=== PATIENT | female | born 1955 | race Asian ===

== ENCOUNTER → 2017-02-23 | Day surgery (SDC) | payer OTHER ==
--- NOTE | 2017-02-24 11:46 | OP ---
DATE OF OPERATION: 02/23/2017 PREOPERATIVE DIAGNOSIS: Left breast retroareolar mass. POSTOPERATIVE DIAGNOSIS: Left breast retroareolar mass. PROCEDURE: Left breast ultrasound-guided core biopsy with clip placement. ANESTHESIA: Local. ATTENDING SURGEON: Marcelina Carrion MD ESTIMATED BLOOD LOSS: Minimal. COMPLICATIONS: None. DESCRIPTION OF PROCEDURE: Patient was made aware of the risks and benefits of the procedure and consented. She was placed in supine position. Under sterile conditions with 1% lidocaine for local anesthesia, a small bautista was made in the skin. Using a 10-gauge suction biopsy device under ultrasound guidance through an inferolateral approach, multiple cores were obtained and submitted to Pathology. Likewise, under ultrasound guidance, a U-shaped clip was placed into the biopsy region. Well tolerated by the patient. Steri-Strip and a sterile bandage were applied. We will contact her with the results. MARCELINA CARRION M.D. [id number]
--- NOTE | 2017-02-25 13:36 | PATH ---
Surgical Pathology Report Patient Name: [facility]. Rec. #: [id number] /Age/Gender: 1955 (Age: 62) / F Account: [id number] Location: Taken: 02/23/2017 Received: 02/23/2017 Reported: 02/25/2017 Physicians: Nirmala Irene M.D. Specimen(s) Received BREAST CORE BIOPSY LEFT RETRO Clinical History Non-palpable lesion Ultrasound findings: Suspicious Final Diagnosis LEFT BREAST, RETROAREOLAR, ULTRASOUND GUIDED NEEDLE CORE BIOPSY: INTRADUCTAL PAPILLOMA WITHOUT ATYPIA, AND FIBROCYSTIC CHANGES INCLUDED STROMAL FIBROSIS, DUCTAL DILATATION, AND CYSTIC APOCRINE METAPLASIA. Electronically Signed Macho Dawkins M.D. Gross Description Received in formalin labeled "left breast retro," is a 2.2 x 2.0 x 0.3 cm aggregate of multiple ansari-yellow, irregular to cylindrical portions of fibroadipose tissue admixed with blood clot. The formalin is filtered and the specimen is entirely submitted in one cassette. Total formalin fixation time: Approximately 8 hours 02/23/2017
== END | disposition home or self-care (01) ==
LOC: FRADUS-SUR 14:13
PROVIDERS: ATTEND Surgery Surgical Oncology
PROC: 0HBU3ZX Excision of Left Breast, Percutaneous Approach, Diagnostic (ICD-10-PCS; principal; 2017-02-23)
DX: D24.2 Benign neoplasm of left breast (principal); N60.32 Fibrosclerosis of left breast; N64.89 Other specified disorders of breast; N60.12 Diffuse cystic mastopathy of left breast; N63.42 Unspecified lump in left breast, subareolar
CPT/HCPCS: 19083; 87899; 88305-TC; A4648; G0206-TC

== ENCOUNTER 2017-10-06 20:04 | Observation (INO) | payer OTHER ==
[2017-10-06 20:10] VITALS: BMI 26.8
--- NOTE | 2017-10-06 20:14 | PDOC ---
Rapid Medical Evaluation Medical Evaluation: 10/06/17 20:05 I have performed a brief in-person evaluation of this patient. The patient presents with a chief complaint of: palpitations with midsternal "discomfort" Pertinent physical exam findings: HR irregular, Lungs CTAB I have ordered the following: labs, urine, CXR, nurse monitoring, EKG The patient will proceed to the ED for further evaluation. Discharge Disposition - Diagnosis Palpitations - Referrals - Patient Instructions - Post Discharge Activity
--- NOTE | 2017-10-06 20:29 | PDOC ---
Attending Attestation - HPI HPI: 10/06/17 22:17 The patient is a 62-year-old female, with a past medical history of HTN and hyperthyroidism, who presents to the ED with palpitations that began 30 minutes prior to arrival. The patient states that she was took her metoprolol while she was eating dinner and subsequently developed palpitations. The patient denies any chest pain or shortness of breath. She denies any fever, chills, nausea, vomiting, diarrhea, or abdominal pain. She denies any dizziness, lightheadedness, or weakness. Allergies: Penicillins, Sulfa (Sulfanamide Antibiotics). PCP: Dr. Pyle - Physicial Exam PE: 10/06/17 22:18 GENERAL: Awake, alert, and fully oriented, in no acute distress HEAD: No signs of trauma EYES: PERRLA, EOMI, sclera anicteric, conjunctiva clear ENT: Auricles normal inspection, hearing grossly normal, nares patent, oropharynx clear without exudates. Moist mucosa NECK: Normal ROM, supple, no lymphadenopathy, JVD, or masses LUNGS: Breath sounds equal, clear to auscultation bilaterally. No wheezes, and no crackles HEART: (+)Tachycardic, irregularly irregular. Normal S1 and S2, no murmurs, rubs or gallops ABDOMEN: Soft, nontender, normoactive bowel sounds. No guarding, no rebound. No masses EXTREMITIES: Normal range of motion, no edema. No clubbing or cyanosis. No cords, erythema, or tenderness NEUROLOGICAL: Cranial nerves II through XII grossly intact. SKIN: Warm, Dry, normal turgor, no rashes or lesions noted - Medical Decision Making 10/06/17 22:00 Dr. Green was paged and notified via phone service. <Amanda Bower - Last Filed: 10/06/17 22:17> - Resident Resident Name: Malika Paredes - ED Attending Attestation I have performed the following: I have examined & evaluated the patient, The case was reviewed & discussed with the resident, I agree w/resident's findings & plan, Exceptions are as noted - Critical Care Time Total Critical Care Time: 45 Critical Care Statement: The care of this patient involved high complexity decision making to prevent further life threatening deterioration of the patient 's condition and/or to evaluate & treat vital organ system(s) failure or risk of failure. - Medical Decision Making 10/06/17 20:29 I, Dr. Apryl Berumen, DO, attest that this document has been prepared under my direction and personally reviewed by me in its entirety. I further attest, that it accurately reflects all work, treatment, procedures and medical decision -making performed by me. 10/06/17 20:54 a/p: 62yo female with new onset afib -symptoms started 25min waiter/waitress captain -hx of hyperthyroid s/p radiated iodine - now on synthroid - last dose change was 6m ago -lifted her dog and the symptoms started -took her nighttime metoprolol waiter/waitress captain -will send labs, thyroid -will place on industrial cleaner -will obtain cxr -no recent illness 10/06/17 22:31 pt still in afib with rvr - despite lopressor will give cardizem 10/06/17 22:31 after cardizem push - pt now in sinus rhythm case discussed with Dr. Green who will see the patient tomorrow in consult repeat ekg: sinus at 80, nl axis, nl interval, t wave inversions avl will give asa 10/06/17 22:43 case discussed with Rolando JENSEN, accepts pt to service Dr. Pyle admits to Dr. Deleon covered by ROLANDO overnight pt agrees to stay for further eval <Apryl Berumen - Last Filed: 10/06/17 22:44> Discharge Disposition - Discharge Dispostion Decision to Admit order: Yes <Apryl Berumen - Last Filed: 10/06/17 22:44> - Diagnosis Palpitations, New onset atrial fibrillation - Discharge Dispostion Condition at time of disposition: Guarded - Referrals Referrals: Lloyd Pyle MD [Primary Care Provider] - - Patient Instructions - Post Discharge Activity Heart Score/ECG Review - ECG Intrepretation Comment:: 10/06/17 21:00 afib at 132, st depression lateral leadsv3-6 with t wave inversions avl <Apryl Berumen - Last Filed: 10/06/17 22:44> Attestations - Attestations 10/06/17 22:27 Documentation prepared by Amanda Bower, acting as medical office receptionist for Apryl Berumen DO. <Amanda Bower - Last Filed: 10/06/17 22:17>
[2017-10-06] MEDS ORDERED: METOPROLOL TARTRATE 5 MG/5 ML VIAL IVPUSH ONE (20:35)
--- NOTE | 2017-10-06 20:48 | PDOC ---
History of Present Illness - General Chief Complaint: Chest Pain Stated Complaint: CHEST PAIN Time Seen by Provider: 10/06/17 20:16 History Source: Patient Exam Limitations: No Limitations - History of Present Illness Initial Comments: 10/06/17 20:46 62 year old female with hyperthyroidism and HTN presents to ED complaining of palpitations since 30 minutes ago. She states she was eating dinner, took her metoprolol and then began to feel palpitations. She denies chest pain, SOB, cough, fever, chills, nausea, vomiting, abdominal pain, weakness, headache, dizziness, lightheadedness. Past History - Past Medical History Allergies/Adverse Reactions: Allergies Allergy/AdvReac Type Severity Reaction Status Date / Time Penicillins Allergy Verified 10/06/17 20:10 Sulfa (Sulfonamide Allergy Verified 10/06/17 20:10 Antibiotics) COPD: No HTN: Yes Thyroid Disease: Yes (HYPERTHYROID.) - Suicide/Smoking/Psychosocial Hx Smoking History: Never smoked Review of Systems - Review of Systems Able to Perform ROS?: Yes Comments:: 10/06/17 20:46 General: denies fever, chills, night sweats, generalized weakness. HEENT: denies sore throat, rhinorrhea, ear pain. Heart: admits to palpitations. denies chest pain, syncope, lower extremity swelling. Respiratory: denies shortness of breath, cough, sputum production, hematemesis. Abdomen: denies abdominal pain, nausea, vomiting, diarrhea, constipation, blood in stool. : denies dysuria, urinary frequency, hematuria. Musculoskeletal: denies joint pain, muscle pain, joint swelling. Neurological: denies headache, dizziness, numbness, tingling. Skin: denies rash, laceration, abrasion. *Physical Exam - Vital Signs Last Vital Signs Temp Pulse Resp BP Pulse Ox 97.3 F L 132 H 20 152/82 99 10/06/17 20:07 10/06/17 20:07 10/06/17 20:07 10/06/17 20:07 10/06/17 20:07 - Physical Exam Comments: 10/06/17 20:47 Appearance: comfortable. HEENT: head is normocephalic, atraumatic. EOMI. PERRLA. Neck: supple without lymphadenopathy Heart: tachycardic, irregular. no murmurs, rubs or gallops. Lungs: clear to auscultation bilaterally. no crackles, rhonchi or wheezing. no stridor. Abdomen: soft, nontender. normal bowel sounds. no rebound, guarding, masses. Extremities: Peripheral pulses intact. No lower extremity edema. Neurological: Alert. Oriented x3. CN 2-12 grossly intact. Moves all four extremities. Heart Score/ECG Review - ECG Impressions Comment:: 10/06/17 20:47 Atrial fibrillation with RVR. ED Treatment Course - LABORATORY CBC & Chemistry Diagram: 10/06/17 21:02 10/06/17 21:02 Medical Decision Making - Medical Decision Making 10/06/17 20:44 62 year old female with hyperthyroidism and HTN presents to ED complaining of palpitations since 30 minutes ago. She states she was eating dinner, took her metoprolol and then began to feel palpitations. She denies chest pain, SOB, cough, fever, chills, nausea, vomiting, abdominal pain, weakness, headache, dizziness, lightheadedness. Initial Vital Signs Temp Pulse Resp BP Pulse Ox 97.3 F L 132 H 20 152/82 99 10/06/17 20:07 10/06/17 20:07 10/06/17 20:07 10/06/17 20:07 10/06/17 20:07 Pending labs including TSH. EKG - atrial fibrillation with RVR. Lopressor ordered. 10/06/17 21:57 Laboratory Results - last 24 hr 10/06/17 10/06/17 10/06/17 21:02 21:02 21:02 WBC 8.1 RBC 4.82 Hgb 14.3 Hct 42.6 MCV 88.4 MCH 29.6 MCHC 33.5 RDW 13.7 Plt Count 293 MPV 8.3 Absolute Neuts (auto) 5.2 Neutrophils % 64.0 Lymphocytes % 24.6 Monocytes % 7.0 Eosinophils % 3.0 Basophils % 1.4 Nucleated RBC % 0 PT with INR 10.40 INR 0.92 PTT (Actin FS) 40.8 H Sodium Potassium Chloride Carbon Dioxide Anion Gap BUN Creatinine Creat Clearance w eGFR Random Glucose Calcium Magnesium Total Bilirubin AST ALT Alkaline Phosphatase Creatine Kinase Troponin I Total Protein Albumin TSH Urine Color Colorless Urine Appearance Clear Urine pH 7.0 Ur Specific [place] 1.002 Urine Protein Negative Urine Glucose (UA) Negative Urine Ketones Negative Urine Blood 1+ H Urine Nitrite Negative Urine Bilirubin Negative Urine Urobilinogen Negative Ur Leukocyte Esterase Negative Urine WBC (Auto) 1 Urine RBC (Auto) 1 Ur Epithelial Cells Rare 10/06/17 21:02 WBC RBC Hgb Hct MCV MCH MCHC RDW Plt Count MPV Absolute Neuts (auto) Neutrophils % Lymphocytes % Monocytes % Eosinophils % Basophils % Nucleated RBC % PT with INR INR PTT (Actin FS) Sodium 145 Potassium 3.4 L Chloride 106 Carbon Dioxide 30 Anion Gap 9 BUN 16 Creatinine 0.7 Creat Clearance w eGFR > 60 Random Glucose 106 Calcium 9.4 Magnesium 2.2 Total Bilirubin 0.5 AST 15 ALT 15 Alkaline Phosphatase 126 H Creatine Kinase 143 Troponin I < 0.02 Total Protein 7.6 Albumin 4.2 TSH 6.62 H Urine Color Urine Appearance Urine pH Ur Specific [place] Urine Protein Urine Glucose (UA) Urine Ketones Urine Blood Urine Nitrite Urine Bilirubin Urine Urobilinogen Ur Leukocyte Esterase Urine WBC (Auto) Urine RBC (Auto) Ur Epithelial Cells *DC/Admit/Observation/Transfer Diagnosis at time of Disposition: Palpitations - Discharge Dispostion Condition at time of disposition: Guarded - Referrals - Patient Instructions - Post Discharge Activity
[2017-10-06] MEDS ORDERED: METOPROLOL TARTRATE 5 MG/5 ML VIAL ONE (21:12)
[2017-10-06 21:13] LABS: BASO % 1.4 % (0-2.0); HEMATOCRIT 42.6 % (32.4-45.2); HEMOGLOBIN 14.3 GM/dL (10.7-15.3); LYMPH % 24.6 % (8-40); MCH 29.6 pg (25.7-33.7); MCHC 33.5 g/dl (32.0-36.0); MEAN CELL VOLUME 88.4 fl (80-96); MEAN PLT VOLUME 8.3 fl (7.5-11.1); PLATELET COUNT 293 K/MM3 (134-434); RBC 4.82 M/mm3 (3.60-5.2); RDW 13.7 % (11.6-15.6); WHITE BLOOD COUNT 8.1 K/mm3 (4.0-10.0)
[2017-10-06 21:15] LABS: URINE APPEARANCE CLEAR; URINE BILIRUBIN NEGATIVE (<2.0 mg/dL); URINE COLOR COLORLESS; URINE GLUCOSE (UA) NEGATIVE (NEGATIVE); URINE KETONE NEGATIVE (NEGATIVE); URINE LEUK ESTERASE NEGATIVE (NEGATIVE); URINE NITRITE NEGATIVE (NEGATIVE); URINE PROTEIN NEGATIVE (NEGATIVE); URINE UROBILINOGEN NEGATIVE mg/dL (0.2-1.0)
[2017-10-06 21:17] LABS: EPI CELLS RARE /HPF (FEW)
[2017-10-06 21:26] LABS: INR 0.92 (0.82-1.09); PROTHROMBIN TIME (PATIENT) 10.4 SEC (9.7-13.0)
[2017-10-06 21:29] LABS: ACTIVATED PTT 40.8 SECONDS (25.2-36.5)
[2017-10-06 21:35] LABS: ALBUMIN 4.2 g/dl (3.4-5.0); ANION GAP 9 (8-16); BILIRUBIN,TOTAL 0.5 mg/dL (0.2-1.0); BLOOD UREA NITROGEN 16 mg/dL (7-18); CALCIUM 9.4 mg/dL (8.5-10.1); CHLORIDE 106 mmol/L (98-107); CO2 30 mmol/L (21-32); CREATININE 0.7 mg/dL (0.55-1.02); GLUCOSE,RANDOM 106 mg/dL (74-106); MAGNESIUM 2.2 mg/dL (1.8-2.4); POTASSIUM 3.4 mmol/L (3.5-5.1); SGOT/AST 15 U/L (15-37); SGPT/ALT 15 U/L (12-78); SODIUM 145 mmol/L (136-145); TOT PROT 7.6 g/dl (6.4-8.2)
[2017-10-06 21:43] LABS: ALK PHOS 126 U/L (45-117)
[2017-10-06] MEDS ORDERED: dilTIAZem HCL 50 MG/10 ML - 10 ML VIAL IVPUSH ONE (21:52)
[2017-10-06] MEDS ORDERED: POTASSIUM CHLORIDE TABS 20 MEQ TABLET.ER (FP) PO ONE ×2 (21:54→22:01)
[2017-10-06] MEDS ORDERED: dilTIAZem HCL 125 MG/25 ML - 25 ML VIAL ONE (22:02)
[2017-10-06] MEDS ORDERED: ASPIRIN 81 MG CHEWABLE TABLETS PO ONE (22:31)
--- NOTE | 2017-10-06 23:02 | HP ---
CHIEF COMPLAINT: Palpitations, Chest Pain PCP: HISTORY OF PRESENT ILLNESS: 62 y/o woman from home presents to the ED with palpitations and chest pain x pm. ER course was notable for: (1) (2) (3) Recent Travel: PAST MEDICAL HISTORY: PAST SURGICAL HISTORY: Social History: Smoking: Alcohol: Drugs: Family History: Allergies Penicillins Allergy (Verified 10/06/17 20:10) Sulfa (Sulfonamide Antibiotics) Allergy (Verified 10/06/17 20:10) HOME MEDICATIONS: REVIEW OF SYSTEMS CONSTITUTIONAL: Absent: fever, chills, diaphoresis, generalized weakness, malaise, loss of appetite, weight change HEENT: Absent: rhinorrhea, nasal congestion, throat pain, throat swelling, difficulty swallowing, mouth swelling, ear pain, eye pain, visual changes CARDIOVASCULAR: Absent: chest pain, syncope, palpitations, irregular heart rate, lightheadedness , peripheral edema RESPIRATORY: Absent: cough, shortness of breath, dyspnea with exertion, orthopnea, wheezing, stridor, hemoptysis GASTROINTESTINAL: Absent: abdominal pain, abdominal distension, nausea, vomiting, diarrhea, constipation, melena, hematochezia GENITOURINARY: Absent: dysuria, frequency, urgency, hesitancy, hematuria, flank pain, genital pain MUSCULOSKELETAL: Absent: myalgia, arthralgia, joint swelling, back pain, neck pain SKIN: Absent: rash, itching, pallor HEMATOLOGIC/IMMUNOLOGIC: Absent: easy bleeding, easy bruising, lymphadenopathy, frequent infections ENDOCRINE: Absent: unexplained weight gain, unexplained weight loss, heat intolerance, cold intolerance NEUROLOGIC: Absent: headache, focal weakness or paresthesias, dizziness, unsteady gait, seizure, mental status changes, bladder or bowel incontinence PSYCHIATRIC: Absent: anxiety, depression, suicidal or homicidal ideation, hallucinations. PHYSICAL EXAMINATION Vital Signs - 24 hr 10/06/17 10/06/17 20:07 21:18 Temperature 97.3 F L Pulse Rate 132 H Respiratory 20 Rate Blood Pressure 152/82 143/93 O2 Sat by Pulse 99 Oximetry (%) GENERAL: Awake, alert, and fully oriented, in no acute distress. HEAD: Normal with no signs of trauma. EYES: Pupils equal, round and reactive to light, extraocular movements intact, sclera anicteric, conjunctiva clear. No lid lag. EARS, NOSE, THROAT: Ears normal, nares patent, oropharynx clear without exudates. Moist mucous membranes. NECK: Normal range of motion, supple without lymphadenopathy, JVD, or masses. LUNGS: Breath sounds equal, clear to auscultation bilaterally. No wheezes, and no crackles. No accessory muscle use. HEART: Regular rate and rhythm, normal S1 and S2 without murmur, rub or gallop. ABDOMEN: Soft, nontender, not distended, normoactive bowel sounds, no guarding, no rebound, no masses. No hepatomegaly or splenomegaly. MUSCULOSKELETAL: Normal range of motion at all joints. No bony deformities or tenderness. No CVA tenderness. UPPER EXTREMITIES: 2+ pulses, warm, well-perfused. No cyanosis. No clubbing. No peripheral edema. LOWER EXTREMITIES: 2+ pulses, warm, well-perfused. No calf tenderness. No peripheral edema. NEUROLOGICAL: Cranial nerves II-XII intact. Normal speech. Normal gait. PSYCHIATRIC: Cooperative. Good eye contact. Appropriate mood and affect. SKIN: Warm, dry, normal turgor, no rashes or lesions noted, normal capillary refill. Laboratory Results - last 24 hr 10/06/17 10/06/17 10/06/17 21:02 21:02 21:02 WBC 8.1 RBC 4.82 Hgb 14.3 Hct 42.6 MCV 88.4 MCH 29.6 MCHC 33.5 RDW 13.7 Plt Count 293 MPV 8.3 Absolute Neuts (auto) 5.2 Neutrophils % 64.0 Lymphocytes % 24.6 Monocytes % 7.0 Eosinophils % 3.0 Basophils % 1.4 Nucleated RBC % 0 PT with INR 10.40 INR 0.92 PTT (Actin FS) 40.8 H Sodium Potassium Chloride Carbon Dioxide Anion Gap BUN Creatinine Creat Clearance w eGFR Random Glucose Calcium Magnesium Total Bilirubin AST ALT Alkaline Phosphatase Creatine Kinase Troponin I Total Protein Albumin TSH Urine Color Colorless Urine Appearance Clear Urine pH 7.0 Ur Specific [place] 1.002 Urine Protein Negative Urine Glucose (UA) Negative Urine Ketones Negative Urine Blood 1+ H Urine Nitrite Negative Urine Bilirubin Negative Urine Urobilinogen Negative Ur Leukocyte Esterase Negative Urine WBC (Auto) 1 Urine RBC (Auto) 1 Ur Epithelial Cells Rare 10/06/17 21:02 WBC RBC Hgb Hct MCV MCH MCHC RDW Plt Count MPV Absolute Neuts (auto) Neutrophils % Lymphocytes % Monocytes % Eosinophils % Basophils % Nucleated RBC % PT with INR INR PTT (Actin FS) Sodium 145 Potassium 3.4 L Chloride 106 Carbon Dioxide 30 Anion Gap 9 BUN 16 Creatinine 0.7 Creat Clearance w eGFR > 60 Random Glucose 106 Calcium 9.4 Magnesium 2.2 Total Bilirubin 0.5 AST 15 ALT 15 Alkaline Phosphatase 126 H Creatine Kinase 143 Troponin I < 0.02 Total Protein 7.6 Albumin 4.2 TSH 6.62 H Urine Color Urine Appearance Urine pH Ur Specific [place] Urine Protein Urine Glucose (UA) Urine Ketones Urine Blood Urine Nitrite Urine Bilirubin Urine Urobilinogen Ur Leukocyte Esterase Urine WBC (Auto) Urine RBC (Auto) Ur Epithelial Cells ASSESSMENT/PLAN: 62 y/o woman placed in Tele Observation for Newonset Afib, Chest Pain r/o ACS FEN - PO Fluids as tolerated - Repleted K- monitor - Low Na Diet DVT ppx - OOB - SCDs - Consider ACs if LOS > 48 hrs Code Status: Full Code Dispo: Tele Observation Problem List - Problem (1) New onset atrial fibrillation Assessment/Plan: -Likely due to hyperthyroidism - Given Metoprolol IV in ED no response, Cardizem IV with response- converted to NSR - [id number] Score 2 - Appreciate Cardiology consult - Serial Enzymes - Given Asa in ED, will continue - Echo in am - Chest Xray- reviewed no acute pathology, awaiting official report - TSH- 0.66 - T3, T4-pending - Appreciate Endocrinology consult - Cardiac monitoring - Repeat CBC, BMP in am Code(s): I48.91 - UNSPECIFIED ATRIAL FIBRILLATION (2) Chest pain Assessment/Plan: - r/o ACS - Serial Enzymes - Cardiology consult - Continue Asa, BB - HEART Score 3 - EKG initially Afib with RVR, given BB, CCB now NSR - Echo in am Code(s): R07.9 - CHEST PAIN, UNSPECIFIED (3) Hyperthyroidism Assessment/Plan: - TSH 0.66 - T3, T4- pending - Appreciate Endocrinology consult - Continue home med - Monitor vitals Code(s): E05.90 - THYROTOXICOSIS, UNSP WITHOUT THYROTOXIC CRISIS OR STORM (4) HTN (hypertension) Assessment/Plan: - Monitor BP - Continue home med - Monitor renal function Code(s): I10 - ESSENTIAL (PRIMARY) HYPERTENSION Visit type - Emergency Visit Emergency Visit: Yes ED Registration Date: 10/06/17 Care time: The patient presented to the Emergency Department on the above date and was hospitalized for further evaluation of their emergent condition. - New Patient This patient is new to me today: Yes Date on this admission: 10/06/17 - Critical Care Critical Care patient: No Hospitalist Screening - Colonoscopy Questionnaire Colonoscopy Questionnaire: Colonoscopy Questionnaire - Patient: 50 - 75 years old and never had a screening colonoscopy: No History of colon or rectal polyps, or CA: No History of IBD, Crohn's disease or UC: No History of abdominal radiation therapy as a child: No - Relative: 1 with colon or rectal CA, or polyps at age 60 or younger: No Colon or rectal CA diagnosed at age 45 or younger: No Multiple relatives with colon or rectal CA: No - Outcome: Screening Result: Negative Screen
[2017-10-07] MEDS ORDERED: ASPIRIN 81 MG CHEWABLE TABLETS ONE (05:58)
[2017-10-07 06:08] LABS: BASO % 0.8 % (0-2.0); CHOLESTEROL 159 mg/dL (50-200); HEMATOCRIT 43.3 % (32.4-45.2); HEMOGLOBIN 14.6 GM/dL (10.7-15.3); LYMPH % 21.9 % (8-40); MCH 30.2 pg (25.7-33.7); MCHC 33.7 g/dl (32.0-36.0); MEAN CELL VOLUME 89.6 fl (80-96); MEAN PLT VOLUME 8.7 fl (7.5-11.1); MONO % 6.7 % (3.8-10.2); NEUT % 68.6 % (42.8-82.8); PLATELET COUNT 288 K/MM3 (134-434); RBC 4.83 M/mm3 (3.60-5.2); RDW 14.4 % (11.6-15.6); TRIGLYCERIDES 91 mg/dL (35-160); WHITE BLOOD COUNT 8.2 K/mm3 (4.0-10.0)
[2017-10-07 06:09] LABS: HDL CHOLESTEROL 60 mg/dL (40-60)
[2017-10-07] MEDS ORDERED: LEVOTHYROXINE NA 50 MCG TABLET (FP) PO SCH (07:00)
[2017-10-07] MEDS ORDERED: LEVOTHYROXINE NA 25 MCG TABLET (FP) PO ONE (07:21)
[2017-10-07] MEDS ORDERED: hydrALAZINE HCL 50 MG TABLET (FP) PO SCH (07:30)
[2017-10-07] MEDS ORDERED: hydrALAZINE HCL 25 MG TABLET (FP) ONE (07:48)
[2017-10-07 07:59] LABS: BLOOD UREA NITROGEN 16 mg/dL (7-18); CREATININE 0.7 mg/dL (0.55-1.02); GLUCOSE,RANDOM 92 mg/dL (74-106); SODIUM 144 mmol/L (136-145)
[2017-10-07 08:00] LABS: ANION GAP 9 (8-16); CALCIUM 9.1 mg/dL (8.5-10.1); CHLORIDE 107 mmol/L (98-107); CO2 28 mmol/L (21-32); MAGNESIUM 2.2 mg/dL (1.8-2.4); PHOSPHOROUS 4.2 mg/dL (2.5-4.9); POTASSIUM 3.8 mmol/L (3.5-5.1)
--- NOTE | 2017-10-07 08:08 | CON.CARD ---
Consult Consult Specialty:: Cardiology Referred by:: Dr. Berumen Reason for Consultation:: Palpitations, newly diagnosed afib - History of Present Illness Chief Complaint: Palpitations History of Present Illness: 62 year old female with hyperthyroidism, hyperlipidemia, HTN presents to ED complaining of palpitations after eating dinner, symptoms persisted despite taking metoprolol. She denies associated chest pain, SOB, near or true syncope, orthopnea, PND or LE edema. Spontaneous cardioversion to SR with IV Cardizem. - History Source History Provided By: Patient Limitations to Obtaining History: No Limitations - Smoking History Smoking history: Never smoked Home Medications - Allergies Allergies/Adverse Reactions: Allergies Allergy/AdvReac Type Severity Reaction Status Date / Time Penicillins Allergy Verified 10/06/17 20:10 Sulfa (Sulfonamide Allergy Verified 10/06/17 20:10 Antibiotics) - Home Medications Home Medications: Ambulatory Orders Hydralazine HCl 50 mg PO TID 10/07/17 Levothyroxine [Synthroid -] 25 mcg PO DAILY 10/07/17 Levothyroxine [Synthroid -] 50 mcg PO DAILY 10/07/17 Metoprolol Tartrate [Lopressor -] 25 mg PO BID 10/07/17 Olmesartan/Hydrochlorothiazide [Benicar Hct 40-25 mg Tablet] 1 each PO DAILY Rosuvastatin Calcium [Crestor] 5 mg PO HS 10/07/17 Review of Systems - Review of Systems Cardiovascular: reports: Palpitations Vital Signs: Vital Signs Temperature 98.2 F 10/06/17 23:00 Pulse Rate 68 10/07/17 06:39 Respiratory Rate 18 10/07/17 06:39 Blood Pressure 155/89 10/07/17 06:39 O2 Sat by Pulse Oximetry (%) 99 10/07/17 07:57 Constitutional: Yes: No Distress, Calm Neck: Yes: Supple Respiratory: Yes: Regular, CTA Bilaterally Gastrointestinal: Yes: Normal Bowel Sounds, Soft Cardiovascular: Yes: Regular Rate and Rhythm JVD: No Carotid Bruit: No Heart Sounds: Yes: S1, S2 Edema: No - Other Data Labs, Other Data: CBC, BMP 10/07/17 05:14 10/07/17 05:14 INR, PTT INR 0.92 (0.82-1.09) 10/06/17 21:02 Troponin, BNP 10/06/17 10/07/17 21:02 04:28 Troponin I < 0.02 0.02 Troponin, BNP 10/06/17 10/07/17 21:02 04:28 Troponin I < 0.02 0.02 Afib @ [address] changes -> NSR @ 80 Imaging - Results Chest X-ray: Report Reviewed (NAD) Problem List - Problems (1) Hyperlipidemia Code(s): E78.5 - HYPERLIPIDEMIA, UNSPECIFIED Qualifiers: Hyperlipidemia type: pure hypercholesterolemia Qualified Code(s): E78.00 - Pure hypercholesterolemia, unspecified; E78.0 - Pure hypercholesterolemia (2) Hypothyroidism Code(s): E03.9 - HYPOTHYROIDISM, UNSPECIFIED Qualifiers: Hypothyroidism type: acquired Qualified Code(s): E03.9 - Hypothyroidism, unspecified (3) HTN (hypertension) Code(s): I10 - ESSENTIAL (PRIMARY) HYPERTENSION Qualifiers: Hypertension type: essential hypertension Qualified Code(s): I10 - Essential (primary) hypertension (4) New onset atrial fibrillation Code(s): I48.91 - UNSPECIFIED ATRIAL FIBRILLATION (5) Palpitations Code(s): R00.2 - PALPITATIONS Assessment/Plan 1. Palpitations referable to newly diagnosed paroxysmal afib with RVR now in SR [id number] 2. hx of hyperthyroid s/p radiated iodine - now on synthroid 3. HTN 4. Hyperlipidemia P:1. Echo to assess ventricular and valve fxn, atrial sizes 2. Increase Lopressor 50 bid, Benicar-HCT 40/12.5 qd, Crestor 5 qhs, add Eliquis 5 bid given elevated risk score, d/c hydralazine 3. Ruled out for SD 4. Thank you for consultative opportunity
[2017-10-07] MEDS ORDERED: METOPROLOL TARTRATE 25 MG TABLET (FP) PO SCH (10:00)
[2017-10-07] MEDS ORDERED: HYDROCHLOROTHIAZIDE 25 MG TABLET (FP) PO SCH (10:00)
[2017-10-07] MEDS ORDERED: PATIENT'S OWN MEDICATION (NON-FORMULARY) (Olmesartan/Hydrochlorothiazide [Benicar Hct 40-2 PO SCH (10:00)
[2017-10-07] MEDS: METOPROLOL TARTRATE 50 MG TABLET (FP) PO SCH ×3 (10:45→22:19)
[2017-10-07] MEDS: VALSARTAN 160 MG TABLET (UD) PO SCH (10:45)
[2017-10-07] MEDS: HYDROCHLOROTHIAZIDE 12.5 MG CAPSULE (FP) PO SCH (10:45)
[2017-10-07] MEDS: APIXABAN 5 MG TABLET PO SCH ×3 (10:45→22:19)
--- NOTE | 2017-10-07 10:54 | DS ---
Physical Examination Vital Signs: Vital Signs Temperature 98.2 F 10/06/17 23:00 Pulse Rate 68 10/07/17 06:39 Respiratory Rate 18 10/07/17 06:39 Blood Pressure 155/89 10/07/17 06:39 O2 Sat by Pulse Oximetry (%) 99 10/07/17 07:57 Constitutional: Yes: Calm Cardiovascular: Yes: Regular Rate and Rhythm, S1, S2 Respiratory: Yes: CTA Bilaterally Gastrointestinal: Yes: Normal Bowel Sounds, Soft Edema: No Neurological: Yes: Alert, Oriented Labs: CBC, BMP 10/07/17 05:14 10/07/17 05:14 Discharge Summary Reason For Visit: NEW ONSET ATRIAL FIBRILLATION Current Active Problems Chest pain (Acute) HTN (hypertension) (Acute) Hyperlipidemia (Acute) Hyperthyroidism (Acute) Hypothyroidism (Acute) New onset atrial fibrillation (Acute) Palpitations (Acute) Condition: Guarded - Instructions Referrals: Lloyd Pyle MD [Primary Care Provider] - 1 Week Sherif Green MD [Staff Physician] - 1 Week Disposition: HOME - Home Medications Comprehensive Discharge Medication List: Ambulatory Orders Hydralazine HCl 50 mg PO TID 10/07/17 Levothyroxine [Synthroid -] 25 mcg PO DAILY 10/07/17 Levothyroxine [Synthroid -] 50 mcg PO DAILY 10/07/17 Metoprolol Tartrate [Lopressor -] 25 mg PO BID 10/07/17 Olmesartan/Hydrochlorothiazide [Benicar Hct 40-25 mg Tablet] 1 each PO DAILY Rosuvastatin Calcium [Crestor] 5 mg PO HS 10/07/17
[2017-10-07] MEDS ORDERED: METOPROLOL TARTRATE 25 MG TABLET (FP) ONE (10:59)
--- NOTE | 2017-10-07 12:12 | DS ---
Physical Examination Vital Signs: Vital Signs Temperature 98.2 F 10/06/17 23:00 Pulse Rate 68 10/07/17 06:39 Respiratory Rate 18 10/07/17 06:39 Blood Pressure 155/89 10/07/17 06:39 O2 Sat by Pulse Oximetry (%) 99 10/07/17 07:57 Constitutional: Yes: Calm Cardiovascular: Yes: Regular Rate and Rhythm, S1, S2 Respiratory: Yes: CTA Bilaterally Gastrointestinal: Yes: Normal Bowel Sounds, Soft Edema: No Neurological: Yes: Alert, Oriented Labs: CBC, BMP 10/07/17 05:14 10/07/17 05:14 Discharge Summary Reason For Visit: NEW ONSET ATRIAL FIBRILLATION Current Active Problems Chest pain (Acute) HTN (hypertension) (Acute) Hyperlipidemia (Acute) Hyperthyroidism (Acute) Hypothyroidism (Acute) New onset atrial fibrillation (Acute) Palpitations (Acute) Hospital Course: 62 year old female with hypothyroidism, hyperlipidemia, HTN presents to ED complaining of palpitations after eating dinner, symptoms persisted despite taking metoprolol. She denies associated chest pain, SOB, near or true syncope, orthopnea, PND or LE edema. Spontaneous cardioversion to SR with IV Cardizem in ER metoprolol stop hydralazine started on eliquis echo done pending results tsh elevate lu increase synthroid dose to 50mcg daily and follow up with dr pyle Condition: Guarded - Instructions Referrals: Sherif Green MD [Staff Physician] - 1 Week Lloyd Pyle MD [Primary Care Provider] - 1 Week Disposition: HOME - Home Medications Comprehensive Discharge Medication List: Ambulatory Orders Hydralazine HCl 50 mg PO TID 10/07/17 Levothyroxine [Synthroid -] 25 mcg PO DAILY 10/07/17 Levothyroxine [Synthroid -] 50 mcg PO DAILY 10/07/17 Metoprolol Tartrate [Lopressor -] 25 mg PO BID 10/07/17 Olmesartan/Hydrochlorothiazide [Benicar Hct 40-25 mg Tablet] 1 each PO DAILY Rosuvastatin Calcium [Crestor] 5 mg PO HS 10/07/17
--- NOTE | 2017-10-07 13:02 | PN ---
Progress Note (short form) - Note Progress Note: patient being transfereed to floor plan to monitor BP and HR awaitng echo result dc home later today or in AM if BP and HR is ok synthroid dose adjusted
--- NOTE | 2017-10-07 13:18 | ECHO ---
Name: KENNETH KAUFMAN B Exam:Adult Echocardiogram Study Date: 10/07/2017 09:58 AM Age: 62 yrs Reason For Study: CHEST PAIN Height: 61 in Weight: 142 lb BSA: 1.6 m2 MMode/2D Measurements & Calculations IVSd: 0.94 cm Ao root diam: 2.7 cm LVIDd: 5.0 cm LA dimension: 3.1 cm LVIDs: 3.3 cm LVPWd: 0.96 cm EDV(Teich): 118.2 ml ESV(Teich): 43.8 ml Doppler Measurements & Calculations MV E max keon: 51.8 cm/sec MV A max keon: 67.6 cm/sec MV E/A: 0.77 Procedure A complete two-dimensional transthoracic echocardiogram was performed (2D, M-mode, Doppler and color flow Doppler). Left Ventricle The left ventricular size, thickness and function are normal. The left ventricular ejection fraction is normal. Ejection Fraction = 60-65%. Right Ventricle The right ventricle is normal in size and function. Atria Normal left and right atrial size and function. Mitral Valve There is no mitral regurgitation noted. Tricuspid Valve There is trace tricuspid regurgitation. There was insufficient TR detected to calculate RV systolic p ressure. Aortic Valve No hemodynamically significant valvular aortic stenosis. No aortic regurgitation is present. Pulmonic Valve There is no pulmonic valvular regurgitation. Great Vessels The aortic root is normal size. Pericardium/Pleura There is no pericardial effusion. Interpretation Summary The left ventricular size, thickness and function are normal. The right ventricle is normal in size and function. There is trace tricuspid regurgitation. MD Destin Da Silva 10/07/2017 01:17 PM
--- NOTE | 2017-10-07 14:27 | EKG ---
Test Reason : Blood Pressure : / mmHG Vent. Rate : 072 BPM Atrial Rate : 072 BPM P-R Int : 150 ms QRS Dur : 080 ms QT Int : 408 ms P-R-T Axes : 017 014 100 degrees QTc Int : 446 ms SINUS RHYTHM WITH PREMATURE ATRIAL COMPLEXES NONSPECIFIC T WAVE ABNORMALITY ABNORMAL ECG WHEN COMPARED WITH ECG OF 06-OCT-2017 22:10, PREMATURE ATRIAL COMPLEXES ARE NOW PRESENT Confirmed by JENNIFER BARRIOS, JULY ([id number]) on 10/07/2017 2:26:39 PM Referred By: Confirmed By:JULY RODRIGUEZ MD
--- NOTE | 2017-10-07 14:29 | EKG ---
Test Reason : Blood Pressure : / mmHG Vent. Rate : 080 BPM Atrial Rate : 080 BPM P-R Int : 158 ms QRS Dur : 078 ms QT Int : 370 ms P-R-T Axes : 012 003 087 degrees QTc Int : 426 ms NORMAL SINUS RHYTHM NORMAL ECG NO PREVIOUS ECGS AVAILABLE Confirmed by JULY RODRIGUEZ MD ([id number]) on 10/07/2017 2:29:12 PM Referred By: Confirmed By:JULY RODRIGUEZ MD
[2017-10-07] MEDS: ROSUVASTATIN CA 5 MG TABLET (FP) PO SCH ×2 (20:40→22:19)
[2017-10-08 05:37] VITALS: TEMP 98.8
[2017-10-08] MEDS ORDERED: LEVOTHYROXINE NA 50 MCG TABLET (FP) PO SCH ×2 (07:00)
[2017-10-08 08:31] VITALS: BP 139/90; PULSE 66
--- NOTE | 2017-10-08 08:55 | PN ---
Progress Note, Physician Chief Complaint: Palpitations and chest pain History of Present Illness: Seen by cardiology Echo unremarkable Vitals stable on Tele - Current Medication List Current Medications: Active Medications Apixaban (Eliquis -) 5 mg PO BID [facility] Last Admin: 10/07/17 22:19 Dose: Not Given Hydrochlorothiazide (Hctz -) 12.5 mg PO DAILY [facility] Last Admin: 10/07/17 10:45 Dose: 12.5 mg Levothyroxine Sodium (Synthroid -) 50 mcg PO DAILY@0700 [facility] Last Admin: 10/08/17 06:14 Dose: 50 mcg Metoprolol Tartrate (Lopressor -) 50 mg PO BID [facility] Last Admin: 10/07/17 22:19 Dose: Not Given Rosuvastatin Calcium (Crestor -) 5 mg PO HS [facility] Last Admin: 10/07/17 22:19 Dose: Not Given Valsartan (Diovan -) 320 mg PO DAILY [facility] Last Admin: 10/07/17 10:45 Dose: 320 mg - Objective Vital Signs: Vital Signs Temperature 98.8 F 10/08/17 08:31 Pulse Rate 66 10/08/17 08:31 Respiratory Rate 20 10/08/17 08:31 Blood Pressure 139/90 10/08/17 08:31 O2 Sat by Pulse Oximetry (%) 99 10/08/17 05:35 Constitutional: Yes: Well Nourished, No Distress, Calm Cardiovascular: Yes: Regular Rate and Rhythm Respiratory: Yes: Regular Musculoskeletal: Yes: WNL Extremities: Yes: WNL Edema: No Peripheral Pulses WNL: Yes Neurological: Yes: Alert, Oriented Psychiatric: Yes: Alert, Oriented Labs: CBC, BMP 10/07/17 05:14 10/07/17 05:14 INR, PTT INR 0.92 (0.82-1.09) 10/06/17 21:02 Problem List - Problems (1) Chest pain Assessment/Plan: NAD, no chest pain at this time seen by cadiology echo unremarkable Code(s): R07.9 - CHEST PAIN, UNSPECIFIED (2) Palpitations Assessment/Plan: seen by [facility] echo unremarkable resume home meds, f/u with cardiology outpatient Code(s): R00.2 - PALPITATIONS Assessment/Plan see problem list
[2017-10-08] MEDS: HYDROCHLOROTHIAZIDE 12.5 MG CAPSULE (FP) PO SCH (09:27)
[2017-10-08] MEDS: METOPROLOL TARTRATE 50 MG TABLET (FP) PO SCH (09:27)
[2017-10-08] MEDS: VALSARTAN 160 MG TABLET (UD) PO SCH (09:27)
[2017-10-08] MEDS: APIXABAN 5 MG TABLET PO SCH (09:27)
[2017-10-08] MEDS ORDERED: ASPIRIN 81 MG CHEWABLE TABLETS PO SCH (10:00)
--- NOTE | 2017-10-08 14:13 | EKG ---
Test Reason : Blood Pressure : / mmHG Vent. Rate : 132 BPM Atrial Rate : 150 BPM P-R Int : 000 ms QRS Dur : 082 ms QT Int : 316 ms P-R-T Axes : 000 025 146 degrees QTc Int : 468 ms ATRIAL FIBRILLATION WITH RAPID VENTRICULAR RESPONSE ABNORMAL ECG NO PREVIOUS ECGS AVAILABLE Confirmed by ERROL BARRIOS, KRANTHI ([id number]) on 10/08/2017 2:13:40 PM Referred By: WILBER MARIN Confirmed By:KRANTHI NORTON MD
[2017-10-11] MEDS ORDERED: LEVOTHYROXINE NA 25 MCG TABLET (FP) PO SCH (07:00)
== END 2017-10-08 11:21 | disposition home or self-care (01) ==
LOC: JER 20:04 → JERBED 22:44 → J4W 10-07 13:18
PROVIDERS: ADMIT Internal Medicine; ATTEND Family Medicine
DX: I48.91 Unspecified atrial fibrillation (principal); R00.2 Palpitations; R07.9 Chest pain, unspecified; I10 Essential (primary) hypertension; E03.9 Hypothyroidism, unspecified; E78.5 Hyperlipidemia, unspecified; Z88.0 Allergy status to penicillin; Z88.2 Allergy status to sulfonamides
CPT/HCPCS: 36415; 71046-TC-FY; 80048; 80053; 80061; 81003; 81015; 82550; 83721; 83735; 84100; 84439; 84443; 84484; 85025; 85610; 85730; 87086; 93005; 93010; 93306-TC; 99283-25; G0378

== ENCOUNTER 2021-11-03 04:35 | Day surgery (SDC) | payer BC ==
[2021-10-29 17:52] VITALS: BMI 26.6
[2021-11-03] MEDS ORDERED: IBUPROFEN 400 MG TABLET (FP) PO PRN (06:17)
[2021-11-03] MEDS ORDERED: ACETAMINOPHEN 325 MG TABLET (FP) PO PRN (06:17)
[2021-11-03] MEDS ORDERED: PROPOFOL 20 ML ONE (10:44)
[2021-11-03] MEDS ORDERED: LIDOCAINE HCL/PF 2% SDV 5ML VIAL ONE (10:44)
[2021-11-03] MEDS ORDERED: MIDAZOLAM HCL 2 MG/2 ML SINGLE DOSE VIAL ONE ×2 (10:44→12:24)
[2021-11-03] MEDS ORDERED: DEXAMETHASONE SOD PHOSPHATE 4 MG/1 ML VIAL ONE (10:44)
[2021-11-03] MEDS ORDERED: ONDANSETRON 4 MG/2 ML VIAL ONE (10:44)
[2021-11-03] MEDS ORDERED: GLYCOPYRROLATE 0.2 MG/1 ML VIAL ONE (15:00)
[2021-11-03] MEDS ORDERED: GLYCOPYRROLATE 0.2 MG/1 ML VIAL IVPB ONE (15:03)
[2021-11-03 17:37] VITALS: RESP 18
[2021-11-03 18:12] VITALS: BP 135/59; PULSE 66; TEMP 97.5
[2021-11-03] MEDS ORDERED: GLYCOPYRROLATE 0.2 MG/1 ML VIAL IVPB PRN (21:19)
== END 2021-11-03 17:10 | disposition home or self-care (01) ==
LOC: JASU-SURG 04:35
PROVIDERS: ATTEND Obstetrics & Gynecology
PROC: 0UDB7ZZ Extraction of Endometrium, Via Natural or Artificial Opening (ICD-10-PCS; 2021-11-03)
PROC: 0UJD8ZZ Inspection of Uterus and Cervix, Via Natural or Artificial Opening Endoscopic (ICD-10-PCS; 2021-11-03)
PROC: 0UBC8ZX Excision of Cervix, Via Natural or Artificial Opening Endoscopic, Diagnostic (ICD-10-PCS; principal; 2021-11-03 13:00)
PROC: 0UB98ZZ Excision of Uterus, Via Natural or Artificial Opening Endoscopic (ICD-10-PCS; 2021-11-03 13:00)
DX: N95.0 Postmenopausal bleeding (principal); D25.0 Submucous leiomyoma of uterus; N84.0 Polyp of corpus uteri
CPT/HCPCS: 86850; 86900; 86901; 88305-TC; 94760